=== PATIENT | female | born 1945 | race Caucasian/White ===

== ENCOUNTER 2020-11-29 17:14 | Emergency (ER) | payer MEDICARE, OTHER ==
[~2020-11-29] VITALS: Ht 154.9 cm; Wt 55.3 kg
[2020-11-29 17:45] LABS: Calcium, Ionized (POC) 1.09 mmol/L (1.10-1.46); Chloride (POC) 103 mmol/L (98-108); Creatinine (POC) 0.6 mg/dL (0.6-1.0); Glucose (ISTAT POC) 120 mg/dL (70-99); Hemoglobin (POC) 15.3 g/dL (12.0-16.0); Potassium (POC) 6.1 mmol/L (3.5-5.5); Sodium (POC) 138 mmol/L (135-148); Total CO2 (POC) 28 mmol/L (21-32)
[2020-11-30] MEDS ORDERED: AMLO5 PO (22:11)
[2020-11-30] MEDS ORDERED: LISI20 PO (22:12)
[2020-11-30] MEDS ORDERED: METO25 PO (22:12)
[2020-11-30] MEDS ORDERED: CLOP75 PO (22:12)
[2020-11-30] MEDS ORDERED: CYCL10 PO (22:13)
== END 2020-11-29 18:23 | disposition left against medical advice (07) ==
LOC: ER 17:14
PROVIDERS: Emergency Medicine
DX: E87.5 Hyperkalemia (principal); J44.9 Chronic obstructive pulmonary disease, unspecified; I10 Essential (primary) hypertension; F17.200 Nicotine dependence, unspecified, uncomplicated; Z53.20 Procedure and treatment not carried out because of patient's decision for unspecified reasons
CPT/HCPCS: 80047; 85014; 99283; A9270; J7030

== ENCOUNTER 2020-11-30 21:49 | Emergency (ER) | payer MEDICARE, OTHER ==
[~2020-11-30] VITALS: Ht 162.6 cm; Wt 40.8 kg
[2020-11-30] MEDS ORDERED: AMLO5 PO (22:11)
[2020-11-30] MEDS ORDERED: LISI20 PO (22:12)
[2020-11-30] MEDS ORDERED: METO25 PO (22:12)
[2020-11-30] MEDS ORDERED: CLOP75 PO (22:12)
[2020-11-30] MEDS ORDERED: CYCL10 PO (22:13)
[2020-11-30 22:23] LABS: Source, Urine Clean Catch
[2020-11-30 22:28] LABS: Bilirubin, Urine Neg (Neg); Blood, Urine Neg (Neg); Glucose Qualitative, Urine Neg (Neg); Ketones, Urine 2+ (Neg); Leukocyte Esterase, Urine Neg (Neg); Nitrite, Urine Neg (Neg); Protein, Urine Neg (Neg); Specific Gravity, Urine 1.005 (1.003-1.022); Urobilinogen, Urine NORM (Normal)
[2020-11-30 22:29] LABS: Appearance, Urine Clear (Clear); Color, Urine Pale Yellow (P-Yellow)
[2020-11-30 22:44] LABS: Hematocrit 41.4 % (33.0-51.0); Mean Corpuscular HGB Conc 33.8 g/dL (31.5-36.5); Mean Corpuscular Volume 95 fL (80-100); Red Blood Cell Count 4.38 M/mm3 (3.80-5.20); White Blood Cell Count 11.54 K/mm3 (4.00-11.30)
[2020-11-30 22:45] LABS: BASOPHILS ABSOLUTE AUTO 0.07 K/mm3 (0.00-0.23); BASOPHILS PERCENT AUTO 1 % (0-2); EOSINOPHILS ABSOLUTE AUTO 0.17 K/mm3 (0.00-0.68); EOSINOPHILS PERCENT AUTO 2 % (0-6); IMMATURE GRAN ABSOLUTE AUTO 0.03 K/mm3 (0.00-0.10); IMMATURE GRAN PERCENT AUTO 0 % (0-1); LYMPHOCYTES ABSOLUTE AUTO 2.56 K/mm3 (0.84-5.20); LYMPHOCYTES PERCENT AUTO 22 % (21-46); MONOCYTES ABSOLUTE AUTO 0.62 K/mm3 (0.16-1.47); MONOCYTES PERCENT AUTO 5 % (4-13); Mean Platelet Volume 10.6 fL (9.1-12.4); NEUTROPHILS ABSOLUTE AUTO 8.09 K/mm3 (1.96-9.15); NEUTROPHILS PERCENT AUTO 70 % (41-73); Platelet Count 269 K/mm3 (150-400); RDW Coefficient Variation 13.2 % (11.7-14.2); RDW Standard Deviation 46.2 fL (35.1-46.3)
[2020-11-30 23:02] LABS: Alanine Aminotransfer (ALT/SGP 15 U/L (12-78); Albumin, Blood 3.8 g/dL (3.4-5.0); Albumin/Globulin Ratio 1.1 (0.8-1.8); Alk Phos 51 U/L (50-136); Anion Gap 7 mmol/L (6-16); Aspartate Aminotrans (AST/SGOT 14 U/L (12-37); Bilirubin, Total 0.4 mg/dL (0.1-1.0); Blood Urea Nitrogen 10 mg/dL (8-24); Bun/Creatinine Ratio 16.7 (12.0-20.0); CO2, Blood 27 mmol/L (21-32); Calcium, Blood 9.3 mg/dL (8.5-10.1); Chloride, Blood 107 mmol/L (98-108); Globulin, Blood 3.4 g/dL (2.2-4.0); Glomerular Filtration Rate >60 (60-); Glucose, Blood 102 mg/dL (70-99); Potassium, Blood 3.1 mmol/L (3.5-5.5); Sodium, Blood 141 mmol/L (136-145); Total Protein, Blood 7.2 g/dL (6.4-8.2)
[2020-11-30 23:23] LABS: Troponin I <0.015 ng/mL (0.000-0.040)
== END 2020-12-01 01:35 | disposition home or self-care (01) ==
LOC: ER 21:49
PROVIDERS: Emergency Medicine; Student in an Organized Health Care Education/Training Program
DX: R55 Syncope and collapse (principal); E87.6 Hypokalemia; I71.4 Abdominal aortic aneurysm, without rupture; F17.200 Nicotine dependence, unspecified, uncomplicated
CPT/HCPCS: 70450; 74177; 80053; 81003; 83690; 84484; 85025; 93005; 93010; 96374; 96375; 99284-25; A9270; J1170; J2405; J7030; Q9967